=== PATIENT | male | born 1975 | race Caucasian/White ===

== ENCOUNTER → 2020-10-21 00:59 | Outpatient (CLI) | payer BC, SELFPAY ==
[2020-10-21 19:08] LABS: SARS-CoV-2 RNA PCR Negative
== END ==
PROVIDERS: PCP Internal Medicine; Visit Provider Internal Medicine Gastroenterology
DX: Z01.812 Encounter for preprocedural laboratory examination (principal); Z20.822 Contact with and (suspected) exposure to COVID-19
CPT/HCPCS: C9803; U0003; U0005

== ENCOUNTER 2020-10-24 00:35 | Day surgery (SDC) | payer BC, SELFPAY ==
[2020-10-15 12:19] VITALS: BMI 25.4
--- NOTE | 2020-10-23 13:10 | P.PNAN_ITS ---
Anes - Initial Pre Proc Eval Procedure: Operation Date: 10/24/20 08:00 Proposed Procedures p Screening Colonoscopy - Karl Archuleta MD Date/Time: 10/23/20 13:10 Surgeon: aKrl Archuleta MD Pre Op Diagnosis: Hematochezia Patient Data Age: 45 Gender: M Height: 1.8 m Weight: 83 kg Allergies Allergy/AdvReac Type Severity Reaction Status Date / Time No Known Allergies Allergy Unverified 10/24/20 06:51 Home Medications Medication Instructions Recorded Confirmed Type sodium,potassium,mag sulfates 17.5 See Rx Instructions PO .COMPLEX 10/01/20 10/24/20 Rx gram-3.13 gram-1.6 gram oral soln #354 ml azelaic acid [Finacea] 1 applic TOPICAL DAILY 10/15/20 10/24/20 History clindamycin phosphate 1 applic TOPICAL DAILY 10/15/20 10/24/20 History doxycycline hyclate 100 mg PO AC 10/15/20 10/24/20 History Patient hx anesthesia problems: none Family hx anesthesia problems: none [facility] Social History Social History Smoking packs per day: 1 Smoking cigarettes per day: 20.0 Years smoked: 2 Smoking pack-years: 2.00 Smoking status: Former smoker Tobacco type: cigarettes Alcohol intake: current Drinks per week: 2 Substance use type: does not use Living arrangements: with family Spiritual care concerns: No Anes - Eval Final PreProcedure Day of Procedure 10/23/20 13:10 Patient weight: overweight Heart: regular rate and rhythm Lungs: clear to auscultation and normal air movement Airway: Mallampati scale class II Neurological: alert and oriented Last oral intake: >/= 8 hours ASA classification: II Emergent: no Anesthetic plan: proceed Anesthesia type and monitoring: general GIVS Informed Consent: The patient's anesthetic plan and its attendant risks and benefits were discussed with the patient/family/POA. Questions were solicited and answers provided to the satisfaction of the patient/family/POA.
[2020-10-24 06:52] VITALS: BP 125/79; PULSE 64; RESP 16; TEMP 36.6; O2SAT 100; BMI 25.7
[2020-10-24] MEDS: LACTATED RINGERS 1,000 ML 150 ML IV CONT (07:00)
--- NOTE | 2020-10-24 07:22 | P.HP_ITS ---
History of Present Illness History of Present Illness Consent: Risks, benefits, and alternatives have been discussed and questions answered. Patient agrees to proceed with procedure. Chief complaint: Hematochezia Narrative: Bucky Saenz is a 45 year old male with rectal bleeding. For the past 4 months he has had increased stool frequency, for 5 bowel movements per day which are usually loose and tend to be urgent. He has been seen blood with most of his bowel movements lately. 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 [facility] Social History Social History Smoking packs per day: 1 Smoking cigarettes per day: 20.0 Years smoked: 2 Smoking pack-years: 2.00 Smoking status: Former smoker Tobacco type: cigarettes Alcohol intake: current Drinks per week: 2 Substance use type: does not use Living arrangements: with family Spiritual care concerns: No Meds Home Medications and Allergies Home Medications Medication Instructions Recorded Confirmed Type sodium,potassium,mag sulfates 17.5 See Rx Instructions PO .COMPLEX 10/01/20 10/24/20 Rx gram-3.13 gram-1.6 gram oral soln #354 ml azelaic acid [Finacea] 1 applic TOPICAL DAILY 10/15/20 10/24/20 History clindamycin phosphate 1 applic TOPICAL DAILY 10/15/20 10/24/20 History doxycycline hyclate 100 mg PO AC 10/15/20 10/24/20 History Allergies Allergy/AdvReac Type Severity Reaction Status Date / Time No Known Allergies Allergy Unverified 10/24/20 06:51 Vital Signs Vital Signs - 24 hr 10/24/20 06:52 Temperature 36.6 C Pulse Rate 64 Respiratory Rate 16 Blood Pressure 125/79 Pulse Oximetry 100 Exam Resp: Auscultation: clear to auscultation bilaterally Cardio: Rate: regular rate Rhythm: regular rhythm GI: GI Palp: Yes Soft to palpation and No Tenderness to palpation present (GI) Assessment and Plan Assessment and plan (1) Blood in stool: Code(s): K92.1 - Melena Status: Acute Assessment and Plan: Colonoscopy with possible biopsy or polypectomy or cautery or injection of substances.
[2020-10-24 08:19] VITALS: BP 108/71; PULSE 63; RESP 17; O2SAT 100
[2020-10-24 08:29] VITALS: BP 125/67; PULSE 71; RESP 18; O2SAT 100
[2020-10-24 08:39] VITALS: BP 116/76; PULSE 62; RESP 24; O2SAT 98
== END 2020-10-24 08:59 | disposition home or self-care (01) ==
PROVIDERS: PCP Internal Medicine; Visit Provider Internal Medicine Gastroenterology
PROC: 0DJD8ZZ Inspection of Lower Intestinal Tract, Via Natural or Artificial Opening Endoscopic (ICD-10-PCS; CPT 45378; principal; 2020-10-24 08:00)
DX: K51.314 Ulcerative (chronic) rectosigmoiditis with abscess (principal); K92.1 Melena; Z87.891 Personal history of nicotine dependence
CPT/HCPCS: 45380; 88305; J2001; J2704; J7120

== ENCOUNTER 2021-08-20 12:04 | Outpatient (CLI) | payer BC, SELFPAY ==
[2021-08-26 22:41] LABS: Calprotectin, Stool 47 mcg/g
== END 2021-08-20 12:05 | disposition home or self-care (01) ==
LOC: ANHLAB 12:05
PROVIDERS: PCP Internal Medicine; Visit Provider Internal Medicine Gastroenterology
DX: K51.90 Ulcerative colitis, unspecified, without complications (principal)
CPT/HCPCS: 83993

== ENCOUNTER 2022-02-12 01:06 | Day surgery (SDC) | payer BC, SELFPAY ==
[2021-12-15 14:47] VITALS: BMI 26.1
--- NOTE | 2021-12-28 11:38 | PC.NURSE ---
Spoke with pt re rescheduled colonoscopy. Updated pt with new date/arrival/procedure time. Pt verbalized understanding. Pt denied any changes to home medications or health history since previous PAT call completed.
--- NOTE | 2022-02-11 11:56 | P.PNAN_ITS ---
Anes - Initial Pre Proc Eval Procedure: Operation Date: 02/12/22 10:00 Proposed Procedures p Colonoscopy - Karl Archuleta MD Date/Time: 02/11/22 11:56 Surgeon: Karl Archuleta MD Pre Op Diagnosis: ulcerative colitis Patient Data Age: 46 Gender: M Height: 1.8 m Weight: 85 kg Allergies Allergy/AdvReac Type Severity Reaction Status Date / Time No Known Allergies Allergy Verified 02/12/22 09:05 Home Medications Medication Instructions Recorded Confirmed Type balsalazide 750 mg capsule See Rx Instructions .Route 01/11/22 02/12/22 Rx .COMPLEX #270 caps Patient hx anesthesia problems: none Family hx anesthesia problems: none Results Review: All pre-operative results and documents have been reviewed as part of the pre- operative evaluation. [facility] Past Medical History Medical History Ulcerative colitis Social History Social History Smoking packs per day: 1 Smoking cigarettes per day: 20.0 Years smoked: 2 Smoking pack-years: 2.00 Smoking status: Never smoker Tobacco type: cigarettes Alcohol intake: never Drinks per week: 2 Substance use: never Substance use type: does not use Living arrangements: with family Spiritual care concerns: No Anes - Eval Final PreProcedure Day of Procedure 02/11/22 11:56 Patient weight: overweight Heart: regular rate and rhythm Lungs: clear to auscultation Airway: Mallampati scale class II Neurological: alert and oriented Last oral intake: >/= 8 hours ASA classification: II Emergent: no Anesthetic plan: proceed Anesthesia type and monitoring: general GIVS and standard monitoring Results Review: All pre-operative results and documents have been reviewed as part of the pre- operative evaluation. Informed Consent: The patient's anesthetic plan and its attendant risks and benefits were discussed with the patient/family/POA. Questions were solicited and answers provided to the satisfaction of the patient/family/POA.
[2022-02-12 09:06] VITALS: BP 119/62; PULSE 52; RESP 20; TEMP 36.5; O2SAT 100
[2022-02-12] MEDS: LACTATED RINGERS 1,000 ML 150 ML IV CONT (09:14)
--- NOTE | 2022-02-12 09:17 | PM.HPGS ---
History of Present Illness History of Present Illness Consent: Risks, benefits, and alternatives have been discussed and questions answered. Patient agrees to proceed with procedure. 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 He has been on mesalamine and improving. Recently we changed him to Balsalazide because insurance did not cover the mesalamine. His last fecal calprotectin level was in the normal range. He has had no bleeding recently. His bowel movements are fairly normal. Review of Systems Review of Systems: All systems reviewed & are unremarkable except as noted in HPI and below PMFSH Past Medical History Medical History Ulcerative colitis Social History Social History Smoking packs per day: 1 Smoking cigarettes per day: 20.0 Years smoked: 2 Smoking pack-years: 2.00 Smoking status: Never smoker Tobacco type: cigarettes Alcohol intake: never Drinks per week: 2 Substance use: never Substance use type: does not use Living arrangements: with family Spiritual care concerns: No Meds Home Medications and Allergies Home Medications Medication Instructions Recorded Confirmed Type balsalazide 750 mg capsule See Rx Instructions .Route 01/11/22 02/12/22 Rx .COMPLEX #270 caps Allergies Allergy/AdvReac Type Severity Reaction Status Date / Time No Known Allergies Allergy Verified 02/12/22 09:05 Vital Signs Vital Signs - 24 hr 02/12/22 09:06 Temperature 36.5 C Pulse Rate 52 L Respiratory Rate 20 Blood Pressure 119/62 Pulse Oximetry 100 Oxygen Delivery Room Air Exam Resp: Auscultation: clear to auscultation bilaterally Cardio: Rate: regular rate Rhythm: regular rhythm GI: GI Palp: Yes Soft to palpation and No Tenderness to palpation present (GI) Assessment and Plan Assessment and plan (1) Ulcerative colitis: Code(s): K51.90 - Ulcerative colitis, unspecified, without complications Status: Acute Assessment and Plan: Colonoscopy with possible biopsy or polypectomy or cautery or injection of substances.
--- NOTE | 2022-02-12 10:20 | SUR.OPER ---
RN verified sigmoid colon and rectal biopsies were collected with Dr. Archuleta
[2022-02-12 10:22] VITALS: BP 109/77; PULSE 60; RESP 18; O2SAT 98
[2022-02-12 10:32] VITALS: BP 130/71; PULSE 64; RESP 18; O2SAT 100
[2022-02-12 10:42] VITALS: BP 127/78; PULSE 58; RESP 18; O2SAT 98
== END 2022-02-12 11:03 | disposition home or self-care (01) ==
PROVIDERS: PCP Internal Medicine; Visit Provider Internal Medicine Gastroenterology
PROC: 0DJD8ZZ Inspection of Lower Intestinal Tract, Via Natural or Artificial Opening Endoscopic (ICD-10-PCS; CPT 45378; principal; 2022-02-12 10:00)
DX: K51.30 Ulcerative (chronic) rectosigmoiditis without complications (principal)
CPT/HCPCS: 45380; 88305; J2704; J7120